=== PATIENT | female | born 1990 | race African-American/Black ===

== ENCOUNTER 2024-02-01 04:46 | Emergency (ER) | payer MEDICAID, OTHER ==
[~2024-02-01] VITALS: Ht 175.3 cm; Wt 75.0 kg
[2024-02-01 04:47] VITALS: BP 125/86; PULSE 86; RESP 16; TEMP 98.7; O2SAT 98
[2024-02-01] MEDS: ACETAMINOPHEN 325MG TABLET PO ONE (05:49)
[2024-02-01] MEDS ORDERED: TOPUD PO (07:29)
== END 2024-02-01 08:14 | disposition home or self-care (01) ==
LOC: ER 04:46
DX: S09.90XA Unspecified injury of head, initial encounter (principal); V49.9XXA Car occupant (driver) (passenger) injured in unspecified traffic accident, initial encounter; Y93.89 Activity, other specified; Y92.89 Other specified places as the place of occurrence of the external cause; Y99.8 Other external cause status
CPT/HCPCS: 73030; 73502; 73560; 99284